=== PATIENT | male | born 1965 | race Two or more races ===

== ENCOUNTER 2017-02-25 09:14 | Emergency (ER) | payer OTHER ==
[~2017-02-25] VITALS: Ht 170.2 cm; Wt 87.1 kg
[~2017-02-25 09:14] MED LIST: CLOB0.055
[2017-02-25 11:19] VITALS: BP 116/78
[2017-02-25] MEDS ORDERED: KETOROLAC TROMETH 60MG/2ML VIAL IM ONE (11:30)
[2017-02-25] MEDS ORDERED: METHOCARBAMOL 500 MG TAB PO ONE (11:30)
== END 2017-02-25 12:34 | disposition home or self-care (01) ==
LOC: ER 09:14
DX: M54.42 Lumbago with sciatica, left side (principal); Z82.49 Family history of ischemic heart disease and other diseases of the circulatory system
CPT/HCPCS: 72110; 96372; 99284; J1885